=== PATIENT | male | born 1965 | race Caucasian/White ===

== ENCOUNTER 2020-09-18 09:56 | Emergency (ER) | payer SELFPAY ==
[~2020-09-18] VITALS: Ht 170 cm; Wt 77.0 kg
[2020-09-18 10:15] VITALS: BP 126/84
--- NOTE | 2020-09-18 10:35 | ED Integumentary General ---
General Chief Complaint: Skin/Wound Problems Stated Complaint: L CHEEK BITE Source: patient Exam Limitations: no limitations History of Present Illness Date Seen by Provider: Sep 18, 2020 Time Seen by Provider: 10:30 Initial Comments Patient is a 55-year-old male who presents to the emergency department today with a chief complaint of a sore to the left cheek. Patient states that he noticed what he thought was a little pimple on his left cheek on Thursday. He scratched at it and states that over the course of the last 24 hours has become more firm and red and warm and tender. Patient states that he believes he has been running a fever. He states that it is very tender to palpation. He thinks that may be potentially a spider bit him. He is not a diabetic. He does complain of swelling to the left cheek and extending down underneath the left jawline. He denies chest pain or shortness of breath. Patient states that he feels generally unwell at the moment. All other review of systems reviewed and negative except as stated above. Timing/Duration: yesterday Location: face Possible Cause: no cause identified Associated Symptoms: fever Allergies and Home Medications Home Medications Clindamycin HCl 300 Mg Capsule, 300 MG PO QID Prescribed by: KENDRICK JACKSON on 09/18/20 1039 Patient Home Medication List Home Medication List Reviewed: Yes Review of Systems Review of Systems Constitutional: see HPI EENTM: other (left sided facial pain) Respiratory: short of breath (mild) Cardiovascular: no symptoms reported Gastrointestinal: no symptoms reported Genitourinary: no symptoms reported Musculoskeletal: no symptoms reported Skin: lesions (left face) All Other Systems Reviewed Negative Unless Noted: Yes Physical Exam Vital Signs Vital Signs - First Documented 09/18/20 10:15 Temp 37.0 Pulse 96 Resp 18 B/P (MAP) 126/84 (98) Pulse Ox 95 Capillary Refill : General Appearance: WD/WN, no apparent distress HEENT: PERRL/EOMI, normal ENT inspection Neck: supple, lymphadenopathy (L) Cardiovascular: regular rate, rhythm, tachycardia, systolic murmur Respiratory: lungs clear, normal breath sounds, no respiratory distress, no accessory muscle use Gastrointestinal: non tender, soft Extremities: normal range of motion, normal inspection, no pedal edema Neurologic/Psychiatric: alert, normal mood/affect, oriented x 3 Skin: normal color, warm/dry Skin Problem Location: face (Left angle of the mandible area of abscess with overlying scab. Area of induration is approximately 5 cm in diameter. There is no central fluctuance. Patient has surrounding erythema that extends down underneath the angle of the left mandible. Very tender to palpation. No drainage) Skin Problem Character: abscess Progress/Results/Core Measures Results/Orders Vital Signs/I&O 09/18/20 10:15 Temp 37.0 Pulse 96 Resp 18 B/P (MAP) 126/84 (98) Pulse Ox 95 Departure Impression Primary Impression: Cellulitis and abscess of face Disposition: HOME, SELF-CARE Condition: Stable Departure-Patient Inst. Decision time for Depature: 10:37 Referrals: [facility] [place] PHYSICIAN (PCP) Primary Care Physician Patient Instructions: Cellulitis (Skin Infection), Adult ED, Skin Abscess Add. Discharge Instructions: Keep the area clean and dry. Make sure you are washing it at least twice a day. Start the antibiotics, clindamycin and take 1 4 times daily for the next week. Come back to the emergency department in 2 to 3 days especially if the infection is not improving or if it is getting larger, if you are having fever or any other emergent concerning symptoms develop. Scripts Clindamycin HCl (Clindamycin HCl) 300 Mg Capsule 300 MG PO QID for 7 Days, #28 CAP Prov: KENDRICK JACKSON MD 09/18/20 KENDRICK JACKSON MD Sep 18, 2020 10:35
[2020-09-18] MEDS ORDERED: CLIN300C12 PO (10:39)
== END 2020-09-18 10:45 | disposition home or self-care (01) ==
LOC: ER 09:59
DX: L03.211 Cellulitis of face (principal); L02.01 Cutaneous abscess of face
CPT/HCPCS: 99282